=== PATIENT | male | born 1960 | race African-American/Black ===

== ENCOUNTER 2017-02-16 16:40 | Emergency (ER) | payer OTHER ==
[~2017-02-16] VITALS: Ht 180.3 cm; Wt 96.2 kg
--- NOTE | ~2017-02-16 | EKG ---
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 02/17/17 1425 1650 49 Chao Cisneros MD, FACC /EPI
[~2017-02-16 16:40] MED LIST: ACCUNEB SO1.25 MG/1 INH; ACTOS; AMARYL4 MG PO; AMOXICILLIN500 M1 PO; ASPIR 8181 MG PO; ASPIRIN81 MG PO; CARAFATE 1 GM TA1 G1 PO; COLCHICINE 0.60.6 M1 PO; COZAAR; DULERA 100 MCG/13 GM INH; FISHOIL; GILPIZIDE; HYZAAR 50-12.51 TAB PO; INDOMETHACIN 2525 MG PO; MAGIC MOUTHWASH SW&SWALLOW; NORCO 5-325 TA1 EACH PO; NORVASC10 MG PO; ONGLYZA5 MG PO; OSENI 25-15 MG1 EACH PO; OXYCODONE HCL15 MG PO; PANTOPRAZOLE SO40 MG PO; PENICILLIN VK500 M1 PO; PERCOCET 7.5-51 EACH PO; PREDNISONE 20 M20 MG PO; PREVACID DIS; SIMVASTATIN20 MG PO; VALIUM2 MG PO; ZYRTEC10 M2 PO
[2017-02-16 17:01] LABS: HEMATOCRIT 36.4 % (42.0-52.0); HEMOGLOBIN 12.9 gm/dL (14.0-18.0); MCH 30.8 pg (26.0-34.0); MCHC 35.5 g/dL (28.0-37.0); MCV 86.5 fL (80.0-100.0); PLATELET COUNT 148 thou/uL (150-400); RBC 4.21 mil/uL (4.50-6.00); RDW 13.8 % (10.5-14.5); WBC 8.6 thou/uL (4.0-11.0)
[2017-02-16 17:10] LABS: ANION GAP 10 mmol/L (7-16); BUN 22 mg/dL (7-18); CALCIUM 9.5 mg/dL (8.5-10.1); CHLORIDE 99 mmol/L (98-107); CO2 26 mmol/L (21-32); CREATININE 1.3 mg/dL (0.7-1.3); GLUCOSE 169 mg/dL (74-106); POTASSIUM 3.8 mmol/L (3.5-5.1); SODIUM 135 mmol/L (136-145)
[2017-02-16 17:19] LABS: ALBUMIN 4.4 g/dL (3.4-5.0); LIPASE 224 U/L (73-393); SGOT 67 U/L (15-37); SGPT 82 U/L (30-65); TOTAL BILIRUBIN 0.6 mg/dL (<0.1-1.0); TOTAL PROTEIN 7.9 g/dL (6.4-8.2); TROPONIN-I < 0.04 ng/mL (<0.06)
[2017-02-16] MEDS ORDERED: OMEPRAZOLE40 MG PO (17:39)
[2017-02-16] MEDS ORDERED: GLYXAMBI 10 MG1 EACH PO (17:40)
[2017-02-16] MEDS ORDERED: NEURONTIN 300300 M1 PO (17:40)
[2017-02-16] MEDS ORDERED: DICLOFENAC SODI75 MG PO (17:41)
[2017-02-16] MEDS ORDERED: PROMETHAZINE/C118 ML PO (17:42)
[2017-02-16] MEDS ORDERED: IBUPROFEN 800800 M1 PO (17:42)
[2017-02-16 17:48] VITALS: BP 128/86
[2017-02-16 18:07] LABS: ABSOLUTE NEUTROPHILS 4.7 thou/uL (1.4-8.2); ATYPICAL LYMPHS 1 %
== END 2017-02-16 18:37 | disposition home or self-care (01) ==
LOC: ER 16:40
PROVIDERS: Nurse Practitioner Family
DX: M54.12 Radiculopathy, cervical region (principal); G89.29 Other chronic pain; M54.2 Cervicalgia; R07.89 Other chest pain; J45.909 Unspecified asthma, uncomplicated; K21.9 Gastro-esophageal reflux disease without esophagitis; E11.9 Type 2 diabetes mellitus without complications; I10 Essential (primary) hypertension; E78.00 Pure hypercholesterolemia, unspecified; G47.30 Sleep apnea, unspecified; M54.9 Dorsalgia, unspecified; F17.210 Nicotine dependence, cigarettes, uncomplicated; Z98.890 Other specified postprocedural states

== ENCOUNTER 2020-06-28 14:56 | Emergency (ER) | payer OTHER ==
[~2020-06-28] VITALS: Ht 180.3 cm; Wt 96.2 kg
[~2020-06-28 14:56] MED LIST changes: +DICLOFENAC SODI75 MG PO; +GLYXAMBI 10 MG1 EACH PO; +IBUPROFEN 800800 M1 PO; +NEURONTIN 300300 M1 PO; +OMEPRAZOLE40 MG PO; +PROMETHAZINE/C118 ML PO
[2020-06-28] MEDS ORDERED: NAPROSYN500 MG PO (16:10)
[2020-06-28] MEDS ORDERED: TYLENOL325 M1 PO (16:10)
[2020-06-28 16:21] VITALS: BP 140/85
== END 2020-06-28 16:21 | disposition home or self-care (01) ==
LOC: ER 14:56
DX: S60.222A Contusion of left hand, initial encounter (principal); S16.1XXA Strain of muscle, fascia and tendon at neck level, initial encounter; S60.221A Contusion of right hand, initial encounter; S60.00XA Contusion of unspecified finger without damage to nail, initial encounter; J45.909 Unspecified asthma, uncomplicated; K21.9 Gastro-esophageal reflux disease without esophagitis; E11.9 Type 2 diabetes mellitus without complications; I10 Essential (primary) hypertension; E78.00 Pure hypercholesterolemia, unspecified; F17.210 Nicotine dependence, cigarettes, uncomplicated; Z98.890 Other specified postprocedural states; Z90.49 Acquired absence of other specified parts of digestive tract; Z79.899 Other long term (current) drug therapy; Z79.82 Long term (current) use of aspirin; W18.09XA Striking against other object with subsequent fall, initial encounter; Y93.89 Activity, other specified; Y92.480 Sidewalk as the place of occurrence of the external cause; Y99.8 Other external cause status

== ENCOUNTER 2020-12-16 10:08 | Emergency (ER) | payer OTHER ==
[~2020-12-16] VITALS: Ht 180.3 cm; Wt 96.2 kg
[~2020-12-16 10:08] MED LIST changes: +NAPROSYN500 MG PO; +TYLENOL325 M1 PO
[2020-12-16 11:08] LABS: CALCIUM 8.7 mg/dL (8.5-10.1); CREATININE 0.9 mg/dL (0.7-1.3); POTASSIUM 3.7 mmol/L (3.5-5.1)
[2020-12-16 11:09] LABS: ABSOLUTE NEUTROPHILS 2.8 thou/uL (1.4-8.2); BASOPHILS 1.2 % (0.0-2.0); EOSINOPHILS 3.5 % (0.0-3.0); HEMATOCRIT 39.1 % (42.0-52.0); HEMOGLOBIN 13.7 gm/dL (14.0-18.0); MCH 30.8 pg (26.0-34.0); MCV 87.9 fL (80.0-100.0); MONOCYTES 17.9 % (1.0-8.0); PLATELET COUNT 130 thou/uL (150-400); POLYS 46.4 % (36.0-66.0); RBC 4.45 mil/uL (4.50-6.00)
[2020-12-16] MEDS ORDERED: MEDI-MECLIZINE25 MG PO (12:54)
[2020-12-16 13:05] VITALS: BP 155/89
[2020-12-16 13:48] LABS: LARGE PLATELETS OCCASIONAL
--- NOTE | 2020-12-16 14:33 | EKG ---
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
== END 2020-12-16 13:07 | disposition home or self-care (01) ==
LOC: ER 10:08
PROVIDERS: Student in an Organized Health Care Education/Training Program
DX: R42 Dizziness and giddiness (principal); J45.909 Unspecified asthma, uncomplicated; K21.9 Gastro-esophageal reflux disease without esophagitis; I10 Essential (primary) hypertension; E78.00 Pure hypercholesterolemia, unspecified; E11.9 Type 2 diabetes mellitus without complications; F17.210 Nicotine dependence, cigarettes, uncomplicated; Z79.82 Long term (current) use of aspirin; Z79.899 Other long term (current) drug therapy